=== PATIENT | female | born 1950 | race Caucasian/White ===

== ENCOUNTER → 2016-06-20 | Outpatient (CLI) | payer MEDICARE, BC ==
[~2016-06-20] MED LIST: ASPIRIN81 M2 PO; ATORVASTATIN CA10 MG PO; BACTRIM DS TABL1 TA1 PO; CHO PO; COQ-10100 MG PO; ESTRACE TOP; GLUCOPHAGE500 MG PO; GLUCOSAMINE PO; LASIX20 MG PO; MAGNESIUM400 M1; METOPROLOL TAR25 MG PO; MOBIC15 MG PO; PRAVACHOL PO; SILVADENE TOP; SUPER B-50 COMP1 CAP SL; SYNTHROID PO; TYLOX 5/500 CAP1 CAP PO; VITAMIN B650 MG PO; VITAMIN D32000 UNIT PO; VITAMIN E400 UNI2 PO; ZESTORETIC 20/21 TAB PO; ZINC50 M1 PO
--- NOTE | ~2016-06-20 | BD1 ---
[facility] A Service of [facility] RADIOLOGY TEXT RESULTS PATIENT: TRISTAN BARNES LOCATION: [facility] : 50 UNIT #: [id number] AGE: [address]: Sanjeev Hansen MD SEX: F ORDER DR: [id number] [address] [id number] O MR#: [id number] Acc #: [id number] NAME: TRISTAN BARNES : 1950 SEX: F STUDY DATE/TIME: 06/20/2016 11:12 UNIT: [facility] ROOM: STUDY DESCRIPTION: Dexa Bone Dens 1+ Site Attending Physician: Sanjeev Hansen M.D. Referring Physician: Sanjeev Hansen M.D. Ordering Physician: Sanjeev Hansen M.D. Primary Care Physician: Sanjeev Hansen M.D. MEDICAL IMAGING REPORT This report is preliminary unless electronic signature is present. EXAM DXA scan HISTORY 66-year-old female postmenopausal screening for osteoporosis. FINDINGS Bone density was assessed utilizing a [employer]adis bone densitometer. Total bone density in the lumbar spine is calculated at 1.534 g/cm2 the a T-score of 3. Total bone density within the proximal left femur was calculated at 1.177 g/cm2 with a T-score 1.3. Total bone in the proximal right femur was calculated 1.174 g/cm2 with a T-score 1.3. IMPRESSION Patient's total bone density within the lumbar spine and proximal femurs exceeds the mean. No findings to suggest osteopenia or osteoporosis at this time. Dictated by... Meri Valencia M.D. THIS IS AN ELECTRONICALLY VERIFIED REPORT Meri Valencia M.D. at 06/20/2016 4:56 PM MICHELLE/rosa TD: 06/20/2016 13:03 JOB #: [id number] [facility] A Service of [facility] RADIOLOGY TEXT RESULTS PATIENT: TRISTAN BARNES LOCATION: [facility] : 50 UNIT #: [id number] AGE: [address]: Sanjeev Hansen MD SEX: F ORDER DR: MEDICAL IMAGING REPORT Page 1 of 1
== END | disposition home or self-care (01) ==
LOC: SRAD 10:57
DX: Z13.820 Encounter for screening for osteoporosis (principal); Z78.0 Asymptomatic menopausal state
CPT/HCPCS: 77080